=== PATIENT | female | born 1935 | race Caucasian/White ===

== ENCOUNTER 2017-03-10 09:18 | Observation (INO) | payer OTHER ==
[~2017-03-10] VITALS: Ht 162.6 cm; Wt 46.0 kg
[2017-03-10] VITALS (7 sets, daily range): BP systolic 99–139; BP diastolic 52–76; PULSE 66–84; RESP 16–20; TEMP 97.4–98.2; O2SAT 88–98
[2017-03-10] MEDS ORDERED: SODIUM CHLOR 0.9% 1000 ML INJ 1,000 ML IV ONE (10:01)
[2017-03-10] MEDS ORDERED: ONDANSETRON ODT 4 MG TAB PO/SL ONE (10:15)
--- NOTE | 2017-03-10 10:23 | PD ---
HPI Chief Complaint: Syncope/Near-Syncope Time Seen by Provider: 09:49 Travel History International Travel<30 days: No Contact w/Intl Traveler<30days: No Traveled to known affect area: No History of Present Illness HPI 82yo F with PMH of lung CA with mets to brain (last chemo was last week) presents to the ED with c/o 2 episodes of lightheadedness. Pt said she was standing when she felt lightheaded and a little nauseous and felt better after sitting down but did not passed out but felt like she was going to. Had a similar episode yesterday. She said she has had these episodes before and it was because of dehydration and she felt better after IVF. Denies any fever, chest pain, sob, vomiting, abdominal pain, focal weakness or numbness. Pt said she had endoscopy in January and was diagnosed with gastritis. Had diarrhea for 2 days. PFSH Past Medical History Cancer: Yes (LUNG CA) Chemotherapy: Yes (LUNG CA) Gastrointestinal Disorders: Yes (GASTRITIS) ?: Not Past Surgical History Abdominal Surgery: Yes (HERNIA REPAIR) Hysterectomy: Yes Other Surgery: Yes (ENDOSCOPY) Social History Alcohol Use: No Tobacco Use: No Substance Use: No Allergies-Medications (Allergen,Severity, Reaction): Coded Allergies: No Known Allergies (Unverified , 03/10/17) Reported Meds & Prescriptions Reported Meds & Active Scripts Active No Active Prescriptions or Reported Medications Review of Systems Except as stated in HPI: all other systems reviewed are Neg Physical Exam Narrative GENERAL: 82yo F in mild distress. SKIN: Focused skin assessment warm/dry. HEAD: Atraumatic. Normocephalic. EYES: Pupils equal and round. No scleral icterus. No injection or drainage. ENT: No nasal bleeding or discharge. Mucous membranes pink and moist. NECK: Trachea midline. No JVD. CARDIOVASCULAR: Regular rate and rhythm. No murmur appreciated. RESPIRATORY: No accessory muscle use. Clear to auscultation. Breath sounds equal bilaterally. GASTROINTESTINAL: Abdomen soft, mild epigastric ttp. No rebound tenderness or guarding. MUSCULOSKELETAL: No obvious deformities. No clubbing. No cyanosis. No edema. NEUROLOGICAL: Awake and alert. No obvious cranial nerve deficits. Motor grossly within normal limits. Normal speech. PSYCHIATRIC: Appropriate mood and affect; insight and judgment normal. Data Data Last Documented VS Vital Signs Date Time Temp Pulse Resp B/P (MAP) Pulse Ox O2 Delivery O2 Flow Rate FiO2 03/10/17 11:23 66 20 137/63 (87) 97 Room Air 03/10/17 09:22 97.5 Orders Orders Electrocardiogram (03/10/17 10:01) Complete Blood Count With Diff (03/10/17 10:01) Comprehensive Metabolic Panel (03/10/17 10:01) Magnesium (Mg) (03/10/17 10:01) Troponin I (03/10/17 10:01) Act Partial Throm Time (Ptt) (03/10/17 10:01) Prothrombin Time / Inr (Pt) (03/10/17 10:01) Urinalysis - C+S If Indicated (03/10/17 10:01) Blood Glucose (03/10/17 10:01) Ecg Monitoring (03/10/17 10:01) Ondansetron Odt (Zofran Odt) (03/10/17 10:15) Sodium Chlor 0.9% 1000 Ml Inj (Ns 1000 M (03/10/17 10:01) Orthostatic Vital Signs (03/10/17 10:01) Lipase (03/10/17 10:23) Ct Abd/Pel W Iv Contrast(Rout) (03/10/17 ) Urine Culture (03/10/17 11:46) Iohexol 350 Inj (Omnipaque 350 Inj) (03/10/17 12:56) Al-Mag Hy-Si 40-40-4 Mg/Ml Liq (Mag-Al P (03/10/17 13:15) Lidocaine 2% Viscous (Xylocaine 2% Visco (03/10/17 13:15) Ceftriaxone Inj (Rocephin Inj) (03/10/17 14:15) Metoclopramide Inj (Reglan Inj) (03/10/17 14:15) Labs Laboratory Tests Test 03/10/17 10:15 03/10/17 11:46 White Blood Count 4.7 TH/MM3 Red Blood Count 3.99 MIL/MM3 Hemoglobin 13.3 GM/DL Hematocrit 37.9 % Mean Corpuscular Volume 95.1 FL Mean Corpuscular Hemoglobin 33.3 PG Mean Corpuscular Hemoglobin Concent 35.0 % Red Cell Distribution Width 12.8 % Platelet Count 233 TH/MM3 Mean Platelet Volume 7.3 FL Neutrophils (%) (Auto) 74.4 % Lymphocytes (%) (Auto) 10.9 % Monocytes (%) (Auto) 13.1 % Eosinophils (%) (Auto) 1.2 % Basophils (%) (Auto) 0.4 % Neutrophils # (Auto) 3.5 TH/MM3 Lymphocytes # (Auto) 0.5 TH/MM3 Monocytes # (Auto) 0.6 TH/MM3 Eosinophils # (Auto) 0.1 TH/MM3 Basophils # (Auto) 0.0 TH/MM3 CBC Comment DIFF FINAL Differential Comment Prothrombin Time 10.5 SEC Prothromb Time International Ratio 1.0 RATIO Activated Partial Thromboplast Time 20.8 SEC Blood Urea Nitrogen 14 MG/DL Creatinine 0.88 MG/DL Random Glucose 102 MG/DL Total Protein 6.7 GM/DL Albumin 2.9 GM/DL Calcium Level 8.6 MG/DL Magnesium Level 2.1 MG/DL Alkaline Phosphatase 53 U/L Aspartate Amino Transf (AST/SGOT) 19 U/L Alanine Aminotransferase (ALT/SGPT) 11 U/L Total Bilirubin 0.3 MG/DL Sodium Level 141 MEQ/L Potassium Level 4.1 MEQ/L Chloride Level 106 MEQ/L Carbon Dioxide Level 25.8 MEQ/L Anion Gap 9 MEQ/L Estimat Glomerular Filtration Rate 62 ML/MIN Troponin I LESS THAN 0.02 NG/ML Lipase 119 U/L Urine Color YELLOW Urine Turbidity HAZY Urine pH 6.5 Urine Specific [place] 1.012 Urine Protein TRACE mg/dL Urine Glucose (UA) NEG mg/dL Urine Ketones NEG mg/dL Urine Occult Blood NEG Urine Nitrite NEG Urine Bilirubin NEG Urine Urobilinogen 2.0 MG/DL Urine Leukocyte Esterase LARGE Urine RBC 2 /hpf Urine WBC 9 /hpf Urine Squamous Epithelial Cells 2 /hpf Urine Bacteria MANY /hpf Urine Hyaline Casts 23 /lpf Urine Mucus FEW /lpf Microscopic Urinalysis Comment CULTURE INDICATED MDM Medical Decision Making Medical Screen Exam Complete: Yes Emergency Medical Condition: Yes Interpretation(s) EKG: NSR 66bpm. Normal axis. No ST segment elevation or depression. Differential Diagnosis Dehydration vs. vasovagal near syncope vs. arrhythmia vs. metastasis Narrative Course 82yo F with c/o 2 episodes of lightheadedness. Pt is refusing CT brain and said that she just had an MRI brain 02/27 and it was normal. Pt understands she can be having a posterior stroke causing these symptoms and does not want a work up for that. 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 Labs reviewed, no leukocytosis. H/H normal. Lipase normal. LFTs normal. Troponin negative. UA showed large leukocyte. WBC 9. Hyaline cast is elevated at 23. Many urine bacteria. Pt given ceftriaxone 1gm IV. Pt given GI cocktail, NS IVF and zofran. Orthostatic is positive with HR increased more than 10 from lying to standing. CTa/p showed normal examination. Small right sided pleural effusion. Pt reevaluated at bedside after zofran, NS IVF and said she is still lightheaded after NS IVF and was walking and still feel nauseous and weak. I spoke with her oncologist Dr. Alcocer's nurse and she said that her MRI 1 week ago showed brain mets much improved and wanted her admitted for dehydration. Since pt is still nauseous and feeling lightheaded, will admit for observation for UTI, dehydration and gave her reglan. She said her right pleural effusion is not new. Diagnosis Primary Impression: Dehydration Additional Impression: UTI (urinary tract infection) Qualified Codes: N39.0 - Urinary tract infection, site not specified Admitting Information Admitting Physician Requests: Observation Scripts No Active Prescriptions or Reported Meds Sneha Benavidez DO Mar 10, 2017 10:23
[2017-03-10 10:42] LABS: AUTOMATED NEUTROPHIL # 3.5 TH/MM3 (1.8-7.7); BASOPHIL % 0.4 % (0.0-2.0); EOSINOPHIL # 0.1 TH/MM3 (0-0.4); EOSINOPHIL % 1.2 % (0.0-4.0); HEMATOCRIT 37.9 % (35.0-46.0); HEMO FLAGS DIFF FINAL; LYMPH % 10.9 % (9.0-44.0); LYMPHOCYTE # 0.5 TH/MM3 (1.0-4.8); MEAN CELL VOLUME 95.1 FL (80.0-100.0); MEAN CORPUSCULAR HEMOGLOBIN 33.3 PG (27.0-34.0); MONO % 13.1 % (0.0-8.0); NEUT % 74.4 % (16.0-70.0); PLATELET COUNT 233 TH/MM3 (150-450); RED BLOOD COUNT 3.99 MIL/MM3 (4.00-5.30); RED CELL DISTRIBUTION WIDTH 12.8 % (11.6-17.2); WHITE BLOOD COUNT 4.7 TH/MM3 (4.0-11.0)
[2017-03-10 10:59] LABS: PROTHROMBIN TIME - PATIENT 10.5 SEC (9.8-11.6)
[2017-03-10 11:00] LABS: APTT (PATIENT) 20.8 SEC (24.3-30.1)
[2017-03-10 11:08] LABS: ANION GAP 9 MEQ/L (5-15); AST (GOT) 19 U/L (15-37); BICARBONATE 25.8 MEQ/L (21.0-32.0); BLOOD UREA NITROGEN 14 MG/DL (7-18); CHLORIDE 106 MEQ/L (98-107); GLOMERULAR FILTRATION RATE 62 ML/MIN (>89); MAGNESIUM 2.1 MG/DL (1.5-2.5); POTASSIUM 4.1 MEQ/L (3.5-5.1); SODIUM (NA) 141 MEQ/L (136-145)
[2017-03-10 11:09] LABS: ALT (GPT) 11 U/L (10-53)
[2017-03-10 11:13] LABS: ALKALINE PHOSPHATASE 53 U/L (45-117); TOTAL BILIRUBIN ADULT 0.3 MG/DL (0.2-1.0)
[2017-03-10 12:30] LABS: BACTERIA, URINE MANY /hpf; BLOOD, URINE NEG (NEG); COMMENT (UR) CULTURE INDICATED; CULTURE IF INDICATED CULTURE INDICATED; GLUCOSE,URINE NEG (NEG); HYALINE CAST, URINE 23 /lpf (RARE); KETONE, URINE NEG (NEG); MUCUS URINE FEW /lpf (OCC); NITRITE,URINE NEG (NEG); PH, URINE 6.5 (5.0-8.5); SQUAMOUS EPITHELIAL CELL URINE 2 /hpf (0-5); URINE COLOR YELLOW (YELLW/STRAW)
[2017-03-10] MEDS ORDERED: IOHEXOL 350 MG/ML 10 ML VIAL (for RAD DIAG) IVCONTRAST ONE (12:56)
--- NOTE | 2017-03-10 13:02 | RADRPT ---
EXAM DATE/TIME: 03/10/2017 12:34 [facility] COMPARISON: No previous studies available for comparison. INDICATIONS : Generalized abdominal pain. Syncope. IV CONTRAST: 70 cc Omnipaque 350 (iohexol) IV ORAL CONTRAST: No oral contrast ingested. RADIATION DOSE: 6.64 CTDIvol (mGy) MEDICAL HISTORY : Carcinoma, lung. SURGICAL HISTORY : Hysterectomy. Hernia repair ENCOUNTER: Initial ACUITY: 1 day PAIN SCALE: 5/10 LOCATION: abdomen TECHNIQUE: Volumetric scanning of the abdomen and pelvis was performed. Using automated exposure control and ad justment of the mA and/or kV according to patient size, radiation dose was kept as low as reasonably achievable to obtain optimal diagnostic quality images. DICOM format image data is available electro nically for review and comparison. FINDINGS: LOWER LUNGS: The visualized lower lungs are clear. Small right-sided pleural effusion LIVER: Homogeneous density without lesion. There is no dilation of the biliary tree. No calcified gallston es. SPLEEN: Normal size without lesion. PANCREAS: Within normal limits. KIDNEYS: Normal in size and shape. There is no mass, stone or hydronephrosis except for a small cyst right si de. ADRENAL GLANDS: Within normal limits. VASCULAR: There is no aortic aneurysm. BOWEL/MESENTERY: The stomach, small bowel, and colon demonstrate no acute abnormality. There is no free intraperitone al air or fluid. ABDOMINAL WALL: Within normal limits. RETROPERITONEUM: There is no lymphadenopathy. BLADDER: No wall thickening or mass. REPRODUCTIVE: Within normal limits. INGUINAL: There is no lymphadenopathy or hernia. MUSCULOSKELETAL: Within normal limits for patient age. CONCLUSION: Normal examination. Small right-sided pleural effusion. Iron Hansen MD on March 10, 2017 at 12:58 Board Certified Radiologist. This report was verified electronically.
[2017-03-10] MEDS ORDERED: ALUMINUM/MAGNESIUM/SIMETH 30 ML CUP PO ONE (13:15)
[2017-03-10] MEDS ORDERED: LIDOCAINE VISCOUS 2% SOLN 15 ML UDC PO ONE (13:15)
[2017-03-10] MEDS ORDERED: METOCLOPRAMIDE INJ 10 MG in SODIUM CHLORIDE 0.9% INJ 50 ML IV ONE (14:15)
[2017-03-10] MEDS ORDERED: cefTRIAXone INJ 1,000 MG in SODIUM CHLORIDE 0.9% INJ 100 ML IV ONE (14:15)
[2017-03-10] MEDS ORDERED: SODIUM CHLOR 0.9% 1000 ML INJ 1,000 ML IV SCH (14:52)
[2017-03-10] MEDS ORDERED: SODIUM CHLORIDE 0.9% FLUSH 10 ML FLUSH IV FLUSH PRN (15:00)
[2017-03-10] MEDS ORDERED: NALOXONE HCL 0.4 MG/ML AMP IV PUSH PRN (15:00)
[2017-03-10] MEDS ORDERED: SODIUM CHLORID 0.9% 500 ML INJ 500 ML IV ONE (15:00)
--- NOTE | 2017-03-10 15:09 | EKG ---
Date Performed: 03/10/2017 Time Performed: 10:37:26 PTAGE: 82 years EKG: Sinus rhythm POSSIBLE LEFT ATRIAL ENLARGEMENT BORDERLINE ECG No prior electrocardiogram available for comparison. DOCTOR: Francesco Levy Interpretating Date/Time 03/10/2017 15:09:25
--- NOTE | 2017-03-10 17:31 | HHI.HP ---
HPI Service [facility] Primary Care Physician Unknown Admission Diagnosis Dehydration, intractable nausea, dizziness Diagnoses: Travel History International Travel<30 Days: No Contact w/Intl Traveler <30 Da: No Traveled to Known Affected Are: No History of Present Illness hx from patient, ER MD , nursing staff mid epigastric pain and fainting spells pain started before the traveling jadwin to here- on thursday she left, have been here since last thursday thus mid epigastric pain started thursday before travel, so it has been one week now also had nuasea no vomiting hx of gastritis hx of lung CA on chemo pills, nurse told to stop of them because of diarrhea and abdominal pain- thus stopped them thursday= about a week now diarrhea stopped once chemo pills stopped but pain continued was taking prevacid and sucralfate, without relief switched to acidfax? then this was stopped by her base ply hand yesterday CT done today wnl no black or red stool egd was 01/28/17- only gastritis, no ulcers usually stress related has been stressed so much lately due to lung CA, family issues july 2015 had some heart workup Review of Systems Except as stated in HPI: all other systems reviewed are Neg Past Family Social History Past Medical History lung cancer with metastatsis to brain gastritis Past Surgical History breast tumor removed about 40yrs ago, benign inguinal hernia 45yrs ago vaginal hysterectomy about 30yrs ago Reported Medications rabeprazole 20mg po bid - was on sucralfate and prevacid quinine sulfate 324mg po daily- started 2 weeks ago tagrisso 80mg po daily- stopped about a week ago Allergies: Coded Allergies: No Known Allergies (Unverified , 03/10/17) Family History cancers all over family mother - ovarian cancer father- prostate ca maternal grandma- colorectal cancer aunts- breast cancer Social History used to smoke, quit 27 yo about 55 yrs ago no etoh or drug abuse Physical Exam Vital Signs Vital Signs Date Time Temp Pulse Resp B/P (MAP) Pulse Ox O2 Delivery O2 Flow Rate FiO2 03/10/17 16:03 03/10/17 15:55 98.2 83 18 138/61 (86) 88 03/10/17 15:40 72 18 139/76 (97) 98 03/10/17 11:23 66 20 137/63 (87) 97 Room Air 03/10/17 10:38 73 20 104/58 (73) 94 Room Air 03/10/17 10:19 69 20 111/59 (76) 75 20 113/56 (75) 80 20 104/58 (73) 03/10/17 09:52 69 20 97 Room Air 03/10/17 09:22 97.5 76 16 99/57 (71) 95 Room Air Physical Exam GENERAL: This is thin lady, looks much younger than her age,in no apparent distress. SKIN: No rashes, ecchymoses or lesions. Cool and dry. HEAD: Atraumatic. Normocephalic. No temporal or scalp tenderness. EYES: No scleral icterus. No injection or drainage. ENT: Nose without bleeding, purulent drainage or septal hematoma. Airway patent. NECK: Trachea midline. No JVD. Supple, nontender, no meningeal signs. CARDIOVASCULAR: Regular rate and rhythm without murmurs, gallops, or rubs. RESPIRATORY: Clear to auscultation. Breath sounds equal bilaterally. No wheezes , rales, or rhonchi. GASTROINTESTINAL: Abdomen soft, mild mid epigastric pain on palpation, nondistended. No guarding. MUSCULOSKELETAL: Extremities without clubbing, cyanosis, or edema. No calf tenderness. NEUROLOGICAL: Awake and alert.Motor and sensory grossly within normal limits. Normal speech. Laboratory Laboratory Tests Test 03/10/17 10:15 03/10/17 11:46 White Blood Count 4.7 Red Blood Count 3.99 Hemoglobin 13.3 Hematocrit 37.9 Mean Corpuscular Volume 95.1 Mean Corpuscular Hemoglobin 33.3 Mean Corpuscular Hemoglobin Concent 35.0 Red Cell Distribution Width 12.8 Platelet Count 233 Mean Platelet Volume 7.3 Neutrophils (%) (Auto) 74.4 Lymphocytes (%) (Auto) 10.9 Monocytes (%) (Auto) 13.1 Eosinophils (%) (Auto) 1.2 Basophils (%) (Auto) 0.4 Neutrophils # (Auto) 3.5 Lymphocytes # (Auto) 0.5 Monocytes # (Auto) 0.6 Eosinophils # (Auto) 0.1 Basophils # (Auto) 0.0 CBC Comment DIFF FINAL Differential Comment Prothrombin Time 10.5 Prothromb Time International Ratio 1.0 Activated Partial Thromboplast Time 20.8 Blood Urea Nitrogen 14 Creatinine 0.88 Random Glucose 102 Total Protein 6.7 Albumin 2.9 Calcium Level 8.6 Magnesium Level 2.1 Alkaline Phosphatase 53 Aspartate Amino Transf (AST/SGOT) 19 Alanine Aminotransferase (ALT/SGPT) 11 Total Bilirubin 0.3 Sodium Level 141 Potassium Level 4.1 Chloride Level 106 Carbon Dioxide Level 25.8 Anion Gap 9 Estimat Glomerular Filtration Rate 62 Troponin I LESS THAN 0.02 Lipase 119 Urine Color YELLOW Urine Turbidity HAZY Urine pH 6.5 Urine Specific [place] 1.012 Urine Protein TRACE Urine Glucose (UA) NEG Urine Ketones NEG Urine Occult Blood NEG Urine Nitrite NEG Urine Bilirubin NEG Urine Urobilinogen 2.0 Urine Leukocyte Esterase LARGE Urine RBC 2 Urine WBC 9 Urine Squamous Epithelial Cells 2 Urine Bacteria MANY Urine Hyaline Casts 23 Urine Mucus FEW Microscopic Urinalysis Comment CULTURE INDICATED Date/Time Source Procedure Growth Status 03/10/17 11:46 Urine Clean Catch Urine Culture Pending Received Result Diagram: 03/10/17 1015 03/10/17 1015 Imaging Last 48 hours Impressions Abdomen/Pelvis CT 03/10/17 0000 Signed Impressions: Service Date/Time: Friday, March 10, 2017 12:34 - CONCLUSION: Normal examination. Small right-sided pleural effusion. MD Kris Messina VTE Risk Assessment Gaeli VTE Risk Assessment: Mod/High Risk (score >= 2) Caprini Risk Assessment Model Point Value = 1 Point Value = 2 Point Value = 3 Point Value = 5 Age 41-60 Minor surgery BMI > 25 kg/m2 Swollen legs Varicose veins or History of unexplained or recurrent spontaneous Oral contraceptives or hormone replacement Sepsis (< 1 month) Serious lung disease, including pneumonia (< 1 month) Abnormal pulmonary function Acute myocardial infarction Congestive heart failure (< 1 month) History of inflammatory bowel disease Medical patient at bed rest Age 61-74 Arthroscopic surgery Major open surgery (> 45 min) Laparoscopic surgery (> 45 min) Malignancy Confined to bed (> 72 hours) Immobilizing plaster cast Central venous access Age >= 75 History of VTE Family history of VTE Factor V Leiden Prothrombin [id number] Lupus anticoagulant Anticardiolipin antibodies Elevated serum homocysteine Heparin-induced thrombocytopenia Other congenital or acquired thrombophilia Stroke (< 1 month) Elective arthroplasty Hip, pelvis, or leg fracture Acute spinal cord injury (< 1 month) Prophylaxis Regimen Total Risk Factor Score Risk Level Prophylaxis Regimen 0-1 Low Early ambulation 2 Moderate Order ONE of the following: *Sequential Compression Device (SCD) *Heparin 5000 units SQ BID 3-4 Higher Order ONE of the following medications: *Heparin 5000 units SQ TID *Enoxaparin/Lovenox 40 mg SQ daily (WT < 150 kg, CrCl > 30 mL/min) *Enoxaparin/Lovenox 30 mg SQ daily (WT < 150 kg, CrCl > 10-29 mL/min) *Enoxaparin/Lovenox 30 mg SQ BID (WT < 150 kg, CrCl > 30 mL/min) AND/OR *Sequential Compression Device (SCD) 5 or more Highest Order ONE of the following medications: *Heparin 5000 units SQ TID (Preferred with Epidurals) *Enoxaparin/Lovenox 40 mg SQ daily (WT < 150 kg, CrCl > 30 mL/min) *Enoxaparin/Lovenox 30 mg SQ daily (WT < 150 kg, CrCl > 10-29 mL/min) *Enoxaparin/Lovenox 30 mg SQ BID (WT < 150 kg, CrCl > 30 mL/min) AND *Sequential Compression Device (SCD) Assessment and Plan Assessment and Plan Impression: abdominal pain likely worsening gastritis from stress/ situations also exacerbated by nausea from chemo pills- leading her to have loss of appetite, not eating well,and thus exacerbating gastritis lung cancer with metastatsis to brain - following up at [facility] Plan: iv fluids pain control with tramadol nausea control with zofran prn protonix IV trial of food after above symptomatic treatment CT abdomen and pelvis personally reviewed- no acute pathology serial enzymes and ekg two sets done- to r/o atypical ACS - negative pt would like to be discharged will dc home tonight with zofran prn/ tramadol prn and pantoprazol 40mg po bid stop home meds of quinine and chemo pills per her doctors DVT prophylaxis with ambulation Discussed Condition With patient, her nurse, ER MD Samay[place],Destini PRUETT Mar 10, 2017 17:31
[2017-03-10] MEDS ORDERED: MORPHINE SULFATE 2 MG/ML INJ IV PUSH PRN (17:45)
[2017-03-10] MEDS ORDERED: ONDANSETRON HCL 4 MG/2 ML VIAL IV PUSH PRN (17:45)
[2017-03-10] MEDS ORDERED: traMADol HCL 50 MG TAB PO ONE (18:00)
[2017-03-10] MEDS ORDERED: PANTOPRAZOLE SODIUM 40 MG VIAL IV PUSH ONE (18:15)
[2017-03-10 18:56] LABS: CREATINE KINASE 42 U/L (26-192)
[2017-03-10] MEDS ORDERED: PROT40TA PO (19:56)
[2017-03-10] MEDS ORDERED: ZOFR4TAB PO (19:56)
[2017-03-10] MEDS ORDERED: TRAM50TA PO (19:57)
[2017-03-10] MEDS ORDERED: SODIUM CHLORIDE 0.9% FLUSH 10 ML FLUSH IV FLUSH SCH (21:00)
[2017-03-11] MEDS ORDERED: PANTOPRAZOLE SODIUM 40 MG VIAL IV PUSH SCH (09:00)
== END 2017-03-10 16:02 | disposition home or self-care (01) ==
LOC: NEPC 09:18 → NEDA 14:51 → NEPHCDU 16:01
PROVIDERS: ADMIT Internal Medicine; ATTEND Internal Medicine
DX: E86.0 Dehydration (principal); N39.0 Urinary tract infection, site not specified; Z85.118 Personal history of other malignant neoplasm of bronchus and lung; C79.31 Secondary malignant neoplasm of brain; R11.0 Nausea; K29.70 Gastritis, unspecified, without bleeding; R10.13 Epigastric pain; A04.8 Other specified bacterial intestinal infections; R94.31 Abnormal electrocardiogram [ECG] [EKG]; J90 Pleural effusion, not elsewhere classified
CPT/HCPCS: 74177; 80053; 81001; 82550; 83690; 83735; 84484; 85025; 85610; 85730; 87077; 87086; 87186; 93005; 96361; 96374; 99285; C9113; G0378; J0696; J2765; J7030; J7040; Q9967